=== PATIENT | male | born 2000 | race Caucasian/White ===

== ENCOUNTER 2021-11-20 14:21 | Emergency (ER) | payer BC ==
[~2021-11-20] VITALS: Ht 185.4 cm; Wt 65.9 kg
[2021-11-20 14:51] VITALS: BP 128/76; TEMP 98.2
[2021-11-20] MEDS ORDERED: CEPHALEXIN500 M1 PO (15:32)
[2021-11-20 15:50] VITALS: PULSE 62
== END 2021-11-20 15:50 | disposition home or self-care (01) ==
LOC: COL.ER 14:21
DX: S91.311A Laceration without foreign body, right foot, initial encounter (principal); Z28.311 Partially vaccinated for COVID-19; Z23 Encounter for immunization; W26.9XXA Contact with unspecified sharp object(s), initial encounter; Y93.6A Activity, physical games generally associated with school recess, summer camp and children